=== PATIENT | female | born 1970 | race Two or more races ===

== ENCOUNTER 2020-11-20 03:08 | Emergency (ER) | payer SELFPAY ==
[~2020-11-20] VITALS: Ht 157.5 cm; Wt 90.9 kg
[2020-11-20] MEDS ORDERED: MORPHINE SULFATE 4 MG/ML VIAL. IV ONE (04:00)
[2020-11-20] MEDS ORDERED: ONDANSETRON PF 4 MG/2 ML VIAL. IVP ONE (04:00)
[2020-11-20 04:43] LABS: BASO # 0.1 x10^3/uL (0.0-0.2); BASO % 1 % (0-3); EOS # 0.4 x10^3/uL (0.0-0.7); EOS % 3 % (0-3); HEMATOCRIT 43.3 % (36.0-47.0); HEMOGLOBIN 14.5 g/dL (12.0-15.5); LYMPH # 3.1 x10^3/uL (1.0-4.8); LYMPH % 26 % (24-48); MEAN CORPUSCULAR HEMOGLOBIN 28 pg (25-35); MEAN CORPUSCULAR HGB CONC 34 g/dL (31-37); MEAN CORPUSCULAR VOLUME 84 fL (79-100); MONO # 0.8 x10^3/uL (0.0-1.1); MONO % 6 % (0-9); NEUT # 7.6 x10^3/uL (1.8-7.7); NEUT % 64 % (31-73); PLATELET COUNT 356 x10^3/uL (140-400); RED BLOOD COUNT 5.13 x10^6/uL (3.50-5.40); RED CELL DISTRIBUTION WIDTH 13.8 % (11.5-14.5); WHITE BLOOD COUNT 11.9 x10^3/uL (4.0-11.0)
[2020-11-20 04:56] LABS: BILIRUBIN,URINE NEGATIVE (NEG); CLARITY,URINE CLEAR; COLOR,URINE YELLOW; NITRITE,URINE NEGATIVE (NEG); PROTEIN,URINE NEGATIVE (NEG-TRACE); UROBILINOGEN,URINE 0.2 mg/dL (0.2 mg/dL)
[2020-11-20 04:58] LABS: CALCIUM 8.7 mg/dL (8.5-10.1); CREATININE 0.8 mg/dL (0.6-1.0); GFR 75.9; POTASSIUM 4.1 mmol/L (3.5-5.1)
[2020-11-20 05:03] LABS: ALBUMIN 3.6 g/dL (3.4-5.0); ALBUMIN/GLOBULIN RATIO 1.4 (1.0-1.7); MAGNESIUM 2.2 mg/dL (1.8-2.4); TOTAL BILIRUBIN 0.1 mg/dL (0.2-1.0); TOTAL PROTEIN 6.1 g/dL (6.4-8.2)
--- NOTE | 2020-11-20 05:04 | RAD ---
INDICATION: Reason: LOWER BACK PAIN / Spl. Instructions: / History: COMPARISON: None. IMPRESSION: Lumbar spine: 3 views obtained. Surgical clips right upper quadrant the abdomen. Degenerative changes of the lumbar spine with osteophyte formation at the vertebral body endplates as well as facet hyper trophy. No definite acute fracture line is seen. Mild retrolisthesis of L2 on 3. Electronically signed by: Nate Brady MD (11/20/2020 5:01 AM) [id number]
[2020-11-20 05:07] LABS: BACTERIA,URINE MANY /HPF (0-FEW); RBC,URINE 0 /HPF (0-2)
--- NOTE | 2020-11-20 05:07 | PHYS DOC ---
Past Medical History Past Medical History: No Pertinent History (CHANCE MORALES DO) Past Surgical History: No Surgical History (CHANCE MORALES DO) Smoking Status: Current Every Day Smoker Alcohol Use: None (CHANCE MORALES DO) General Adult EDM: Chief Complaint: LOWER BACK PAIN OR INJURY HPI: HPI: Patient is a 50 year old male who presented to ER due to low back pain that radiated to her right buttock area for the last few days. Patient denies any injury. Patient denies any nausea vomiting. Patient also complains of right flank pain that radiates over her right groin area. Patient denies any history of diabetic, no history of hypertension. Patient denies any bowel or bladder i ncontinence. She denies any weakness or numbness in her lower extremities. (CHANCE MORALES DO) Review of Systems: Review of Systems: Constitutional: Denies fever or chills. [] Eyes: Denies change in visual acuity. [] HENT: Denies nasal congestion or sore throat. [] Respiratory: Denies cough or shortness of breath. [] Cardiovascular: Denies chest pain or edema. [] GI: Positive for right side abdominal pain, no nausea vomiting, no diarrhea. : Denies dysuria. [] Musculoskeletal: Positive for low back pain. Integument: Denies rash. [] Neurologic: Denies headache, focal weakness or sensory changes. [] Endocrine: Denies polyuria or polydipsia. [] Lymphatic: Denies swollen glands. [] Psychiatric: Denies depression or anxiety. [] (CHANCE MORALES DO) Heart Score: C/O Chest Pain: N/A Risk Factors: Risk Factors: DM, Current or recent (<one month) smoker, HTN, HLP, family history of CAD, obesity. Risk Scores: Score 0 - 3: 2.5% MACE over next 6 weeks - Discharge Home Score 4 - 6: 20.3% MACE over next 6 weeks - Admit for Clinical Observation Score 7 - 10: 72.7% MACE over next 6 weeks - Early Invasive Strategies (CHANCE MORALES DO) Current Medications: Current Medications Medications (Trade) Dose Ordered Sig/Steff Start Time Stop Time Status Last Admin Dose Admin Morphine Sulfate (Morphine Sulfate) 4 mg 1X ONCE 11/20/20 04:00 11/20/20 04:01 DC 11/20/20 04:16 4 MG Ondansetron HCl (Zofran) 4 mg 1X ONCE 11/20/20 04:00 11/20/20 04:01 DC 11/20/20 04:17 4 MG (CHANCE MORALES DO) Allergies: Allergies: Allergies Coded Allergies Type Severity Reaction Last Updated Verified No Known Drug Allergies 11/20/20 No (CHANCE MORALES DO) Physical Exam: PE: Constitutional: Well developed, well nourished, no acute distress, non-toxic appearance. [] HENT: Normocephalic, atraumatic, bilateral external ears normal, oropharynx moist, no oral exudates, nose normal. [] Eyes: PERRLA, EOMI, conjunctiva normal, no discharge. [] Neck: Normal range of motion, no tenderness, supple, no stridor. [] Cardiovascular:Heart rate regular rhythm, no murmur [] Lungs & Thorax: Bilateral breath sounds clear to auscultation [] Abdomen: Bowel sounds normal, soft, no tenderness, no masses, no pulsatile masses. [] Skin: Warm, dry, no erythema, no rash. [] Back: No tenderness, no CVA tenderness. [] Extremities: No tenderness, no cyanosis, no clubbing, ROM intact, no edema. [] Neurologic: Alert and oriented X 3, normal motor function, normal sensory function, no focal deficits noted. [] Psychologic: Affect normal, judgement normal, mood normal. [] (CHANCE MORALES DO) Current Patient Data: Labs: Laboratory Tests Test 11/20/20 03:25 11/20/20 04:08 POC Urine HCG, Qualitative Hcg negative (Negative) White Blood Count 11.9 x10^3/uL (4.0-11.0) H Red Blood Count 5.13 x10^6/uL (3.50-5.40) Hemoglobin 14.5 g/dL (12.0-15.5) Hematocrit 43.3 % (36.0-47.0) Mean Corpuscular Volume 84 fL (79-100) Mean Corpuscular Hemoglobin 28 pg (25-35) Mean Corpuscular Hemoglobin Concent 34 g/dL (31-37) Red Cell Distribution Width 13.8 % (11.5-14.5) Platelet Count 356 x10^3/uL (140-400) Neutrophils (%) (Auto) 64 % (31-73) Lymphocytes (%) (Auto) 26 % (24-48) Monocytes (%) (Auto) 6 % (0-9) Eosinophils (%) (Auto) 3 % (0-3) Basophils (%) (Auto) 1 % (0-3) Neutrophils # (Auto) 7.6 x10^3/uL (1.8-7.7) Lymphocytes # (Auto) 3.1 x10^3/uL (1.0-4.8) Monocytes # (Auto) 0.8 x10^3/uL (0.0-1.1) Eosinophils # (Auto) 0.4 x10^3/uL (0.0-0.7) Basophils # (Auto) 0.1 x10^3/uL (0.0-0.2) Sodium Level 146 mmol/L (136-145) H Potassium Level 4.1 mmol/L (3.5-5.1) Chloride Level 108 mmol/L (98-107) H Carbon Dioxide Level 31 mmol/L (21-32) Anion Gap 7 (6-14) Blood Urea Nitrogen 18 mg/dL (7-20) Creatinine 0.8 mg/dL (0.6-1.0) Estimated GFR (Cockcroft-Gault) 75.9 BUN/Creatinine Ratio 23 (6-20) H Glucose Level 78 mg/dL (70-99) Calcium Level 8.7 mg/dL (8.5-10.1) Magnesium Level Pending Total Bilirubin Pending Aspartate Amino Transferase (AST) Pending Alanine Aminotransferase (ALT) Pending Alkaline Phosphatase Pending Total Protein Pending Albumin Pending Albumin/Globulin Ratio Pending Laboratory Tests 11/20/20 04:08 Laboratory Tests 11/20/20 04:08 Vital Signs: Vital Signs Date Time Temp Pulse Resp B/P (MAP) Pulse Ox O2 Delivery O2 Flow Rate FiO2 11/20/20 04:16 18 99 Room Air 11/20/20 03:30 98.2 75 173/95 (121) 98.2 (CHANCE MORALES DO) EKG: EKG: [] (CHANCE MORALES DO) Radiology/Procedures: Radiology/Procedures: [][facility] [address] [facility] [place] [address] IMAGING REPORT Signed PATIENT: THIAGO JIMENEZACCOUNT: [id number] : 1970 LOCATION: ER AGE: 50 SEX: F EXAM STATUS: REG ER ORD. PHYSICIAN: CHANCE MORALES DO REASON: LOWER BACK PAIN PROCEDURE: LUMBAR SPINE 2-3V INDICATION: Reason: LOWER BACK PAIN / Spl. Instructions: / History: COMPARISON: None. IMPRESSION: Lumbar spine: 3 views obtained. Surgical clips right upper quadrant the abdomen. Degenerative changes of the lumbar spine with osteophyte formation at the vertebral body endplates as well as facet hypertrophy. No definite acute fracture line is seen. Mild retrolisthesis of L2 on 3. Electronically signed by: Jeff Nicole MD (11/20/2020 5:01 AM) [id number] DICTATED and SIGNED BY: JEFF NICOLE MD DATE: 11/20/20 [id number] (CHANCE MORALES DO) Course & Med Decision Making: Course & Med Decision Making Pertinent Labs and Imaging studies reviewed. (See chart for details) Patient is a 50-year-old female who presented to ER due to low back pain consistent with sciatica. Patient blood pressure was elevated. CTA of the chest abdomen pelvic result is pending at this time. Patient care was endorsed to the incoming physician at shift change Dr. Enoch Romero. (CHANCE MORALES DO) Course & Med Decision Making Assumed care of patient at checkout. Outpatient CT was pending. CT is negative for acute pathology. Patient does have spinal stenosis. Patient likely has sciatica. Patient's test results and vitals while in the ED were fully reviewed and discussed with the patient. Patient is stable and at this time does not need admission to the hospital. We have discussed strict return precautions and the importance of following up with their Primary Care Physician. Patient stated understanding and was given an opportunity to ask any questions. Patient is in agreement with plan. (ENOCH ROMEOR MD) Dragon Disclaimer: Dragon Disclaimer: This electronic medical record was generated, in whole or in part, using a voice recognition dictation system. (CHANCE MORAELS DO) Departure Departure Impression: Primary Impression: Lower back pain Additional Impressions: Hypertension Sciatica Disposition: HOME / SELF CARE / HOMELESS Condition: IMPROVED Referrals: NO PCP (PCP) Patient Instructions: Sciatica Scripts Methocarbamol (METHOCARBAMOL) 500 Mg Tablet 500 MG PO QID PRN for MUSCLE PAIN for 5 Days, #20 TAB Prov: ENOCH ROMERO MD 11/20/20 CHANCE MORALES DO November 20, 2020 05:07 ENOCH ROMERO MD November 20, 2020 07:18
[2020-11-20] MEDS ORDERED: IOHEXOL 350 MG/ML 100 ML VIAL. IV ONE (05:30)
[2020-11-20] MEDS ORDERED: CONTRAST GIVEN. MC PRN (05:45)
[2020-11-20 06:30] VITALS: BP 136/86
--- NOTE | 2020-11-20 07:09 | RAD ---
INDICATION: Reason: abdominal pain, back pain, hypertensive / Spl. Instructions: / History: . COMPARISON: None. TECHNIQUE: Axial CT images obtained through the chest, abdomen and pelvis with contrast with three-dimensional i mages process per angiogram protocol. One or more of the following individualized dose reduction techniques were utilized for this examinat ion: 1. Automated exposure control; 2. Adjustment of the mA and/or kV according to patient size; 3 . Use of iterative reconstruction technique. FINDINGS: Chest: No evidence of pneumothorax. Mild dependent atelectasis. Scattered small lymph nodes in the mediastinum. Portion of ascending thoracic aorta is obscured by motion. Ascending thoracic aorta measures up to 38 mm. No significant pericardial effusion. No central pulmonary embolus. Abdomen and pelvis: Degenerative changes of the spine. Abdominal aorta is not aneurysmal. Scattered calcific atherosclerosis. Small fat-containing umbilical hernia. Liver is low density. Nonspecific but can be seen with fatty infiltration. Postcholecystectomy changes with prominent bile ducts which is commonly seen postoperatively. No peripancreatic fluid collection. Spleen is small in size. Heterogenous enhancement. No hydronephrosis. Urinary bladder is partially distended. Intrauterine device. There is a enhancing lesion at the anterior aspect of the myometrium measuring 26 mm. Commonly from f ibroid. Mild colonic diverticula. No periappendiceal inflammatory changes. Dilated loop of bowel in the left upper quadrant of the abdomen measuring up to 30 mm Fat-containing umbilical hernia. Multilevel central canal and neural foraminal stenosis. IMPRESSION: * No focal airspace consolidation to suggest pneumonia. * No central pulmonary embolus. * Degenerative changes throughout the spine. * Enhancing lesion at the anterior aspect of the uterus. Most commonly from fibroid. * Mildly dilated loop of bowel in the left upper quadrant the abdomen. Would suspect that this is fr om phase of peristalsis. Electronically signed by: Nate Brady MD (11/20/2020 7:06 AM) [id number]
[2020-11-20] MEDS ORDERED: METH-561 PO (07:17)
== END 2020-11-20 07:35 | disposition home or self-care (01) ==
LOC: ER 03:08
DX: M54.41 Lumbago with sciatica, right side (principal); I10 Essential (primary) hypertension; F17.200 Nicotine dependence, unspecified, uncomplicated
CPT/HCPCS: 36415; 71275; 72100; 74177; 80053; 81001; 81025; 83690; 83735; 85025; 87086; 96374; 96375; 99285; J2270; J2405; Q9967; 87077; 87186